=== PATIENT | female | born 1940 | race Caucasian/White ===

== ENCOUNTER 2017-04-18 16:50 | Emergency (ER) | payer MEDICARE, BC ==
[2017-04-18] MEDS ORDERED: Ondansetron HCl/PF 4 MG/2 ML Vial ONE (17:31)
[2017-04-18] MEDS ORDERED: Ondansetron ODT 4 MG TAB ONE (17:31)
== END 2017-04-18 17:35 | disposition home or self-care (01) ==
LOC: MADERS 16:50
DX: K52.9 Noninfective gastroenteritis and colitis, unspecified (principal); E78.5 Hyperlipidemia, unspecified; I10 Essential (primary) hypertension
CPT/HCPCS: 99283; J2405; Q0162

== ENCOUNTER 2017-04-19 03:22 | Emergency (ER) | payer MEDICARE, BC ==
[2017-04-19 03:56] LABS: #Lymphocytes 1.1 thou/uL (1.20-3.40); #Monocytes 0.8 thou/uL (0.11-0.59); #Neutrophils 12.2 thou/uL (1.40-6.50); %Basophils 0.3 % (0.0-1.0); %Eosinophils 0.1 % (0.0-10.0); %Monocytes 5.4 % (0.0-10.0); %Neutrophils 86.1 % (42.0-75.0); Hemoglobin 16.9 g/dL (12.0-16.0); Mean Corpuscular HGB CONC 33.6 g/dL (32.0-36.0); Mean Corpuscular Hemoglobin 30.1 pg (27.0-31.0); Mean Corpuscular Volume 89.7 fl (81.0-99.0); Mean Platelet Volume 9.7 fL (7.4-10.4); Platelet Count 238 thou/uL (130-400); RBC Distribution Width 12.5 % (11.5-14.5); Red Blood Cell (RBC) Count 5.62 mill/uL (4.20-5.40); White Blood Cell (WBC) Count 14.2 thou/uL (4.8-10.8)
[2017-04-19] MEDS ORDERED: Ketorolac Tromethamine 30 MG/ML VIAL ONE (04:03)
[2017-04-19] MEDS ORDERED: Metoclopramide HCl 10 MG/2 ML VIAL ONE ×2 (04:04→09:23)
[2017-04-19] MEDS ORDERED: Ondansetron HCl/PF 4 MG/2 ML Vial ONE (04:04)
[2017-04-19 04:13] LABS: ALT (SGPT) 10 U/L (8-55); AST (SGOT) 17 U/L (5-34); Albumin 3.6 g/dL (3.4-4.8); Alkaline Phosphatase 87 U/L (40-150); Anion Gap 21 mmol/L (10-20); BUN (Urea Nitrogen) 15 mg/dL (9.8-20.1); Bilirubin, Total 1.3 mg/dL (0.2-1.2); CK (CPK) 32 U/L (29-168); Calc. Creatinine Clearance 0 mL/min (70-130); Calcium 8.8 mg/dL (7.8-10.44); Carbon Dioxide 18 mmol/L (23-31); Chloride 103 mmol/L (98-107); Estimated GFR-MDRD 48; Globulin 2.4 g/dL (2.4-3.5); Glucose 146 mg/dL (83-110); Lipase 27 U/L (8-78); Potassium 3.8 mmol/L (3.5-5.1); Sodium 138 mmol/L (136-145)
[2017-04-19 04:15] LABS: Troponin I 0.014 ng/mL (< 0.028)
[2017-04-19 04:22] LABS: PTT 23.6 SEC (22.9-36.1); Prothrombin Time 13.8 SEC (12.0-14.7)
[2017-04-19 04:30] LABS: CKMB 2.5 ng/mL (0-6.6)
[2017-04-19 04:47] LABS: Clarity Hazy (Clear); Glucose, Urine (Dipstick) Negative (Negative); Icto Negative (Negative); Leukocyte Small (Negative); Nitrite Negative (Negative); Protein, Urine (Dipstick) Negative (Neg-Trace); Urobilinogen 0.2 mg/dL (0.2-1.0); pH, Urine 5.5 (5.0-9.0)
[2017-04-19 04:48] LABS: Bilirubin Negative (Negative); Blood, Urine Small (Negative)
[2017-04-19 04:54] LABS: Bacteria/HPF 2+ HPF (None Seen); Hyaline Casts/LPF 7-10 HYALINE CAST LPF (0-3 Hyaline); RBC/HPF 0-3 HPF (0-3)
[2017-04-19] MEDS ORDERED: Ciprofloxacin 500 MG TAB ONE (05:06)
[2017-04-19] MEDS ORDERED: Sodium Chloride 0.9% 1,000 ML BAG ONE (07:40)
--- NOTE | 2017-04-19 08:05 | RAD ---
PORTABLE CHEST 1 VIEW: Date: 04/19/17 Time: 0344 hours HISTORY: Syncope. FINDINGS: Heart size is normal. No confluent areas of consolidation, pneumothorax, or pleural effusions are se en. IMPRESSION: No acute process. POS: OFF
--- NOTE | 2017-04-19 08:10 | CT ---
PRELIMINARY REPORT/[facility]/EMERGENCY AFTER HOURS PROCEDURE: EXAM: CT Head Without Intravenous Contrast CLINICAL HISTORY: 77 years old, female; Injury or trauma; Fall; Initial encounter; Abrasion; Face TECHNIQUE: Axial computed tomography images of the head/brain without intravenous contrast. This CT exam was pe rformed using one or more of the following dose reduction techniques: automated exposure control, ad justment of the mA and/or kV according to patient size, and/or use of iterative reconstruction techn ique. EXAM DATE/TIME: Exam ordered 04/19/2017 4:12 AM COMPARISON: No relevant prior studies available. FINDINGS: Brain: There is moderate parenchymal volume loss. No hemorrhage. No significant white matter disease . No edema. Ventricles: Normal. No ventriculomegaly. Bones/joints: Normal. No acute fracture. Soft tissues: There is trace RIGHT frontal soft tissue swelling. Sinuses: Unremarkable as visualized. No acute sinusitis. Mastoid air cells: Unremarkable as visualized. No mastoid effusion. IMPRESSION: No acute intracranial hemorrhage. Thank you for allowing us to participate in the care of your patient. Dictated and Authenticated by: David De La Rosa MD 04/19/2017 5:01 AM Central Time ([place] \T\ [place]) FINAL REPORT CT BRAIN WITHOUT CONTRAST: I agree with the preliminary report given by Dr. David De La Rosa of [facility]. No CT evidence of acute intr acranial process is seen. POS: OFF
--- NOTE | 2017-04-19 08:11 | CT ---
PRELIMINARY REPORT/[facility]/EMERGENCY AFTER HOURS PROCEDURE: EXAM: CT Cervical Spine Without Intravenous Contrast CLINICAL HISTORY: 77 years old, female; Injury or trauma; Fall; Initial encounter; Sprain or strain, cervical ligament s TECHNIQUE: Axial computed tomography images of the cervical spine without intravenous contrast. This CT exam wa s performed using one or more of the following dose reduction techniques: automated exposure control , adjustment of the mA and/or kV according to patient size, and/or use of iterative reconstruction t echnique. EXAM DATE/TIME: Exam ordered 04/19/2017 4:16 AM COMPARISON: No relevant prior studies available. FINDINGS: Vertebrae: No CT evidence for acute cervical fracture. 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 Multilevel degenerative changes are p resent with the space narrowing and spondylosis with degenerative straightening of the cervical spine and mild multilevel neural foraminal narrowing spinal canal stenosis. Discs/spinal canal/neural foramina: See above. Soft tissues: Normal. Thyroid: The thyroid gland is normal. Lung apices: Unremarkable as visualized. IMPRESSION: No CT evidence for acute cervical fracture. Degenerative changes as above. Thank you for allowing us to participate in the care of your patient. Dictated and Authenticated by: David De La Rosa MD 04/19/2017 5:04 AM Central Time ([place] \T\ [place]) FINAL REPORT CT CERVICAL SPINE WITH CORONAL AND SAGITTAL REFORMATIONS: I agree with the preliminary report given by Dr. David De La Rosa of [facility]. POS: OFF
== END 2017-04-19 05:31 | disposition home or self-care (01) ==
LOC: MADERS 03:22
DX: S00.03XA Contusion of scalp, initial encounter (principal); E86.0 Dehydration; N39.0 Urinary tract infection, site not specified; R55 Syncope and collapse; E78.5 Hyperlipidemia, unspecified; I10 Essential (primary) hypertension; X58.XXXA Exposure to other specified factors, initial encounter
CPT/HCPCS: 70450; 71010; 72125; 80053; 81001; 82150; 82553; 83690; 83880; 84484; 85025; 85610; 85730; 87077; 87086; 87186; 93005; 94760; 96361; 96374; 96375; J1885; J2405; J2765; J7050

== ENCOUNTER 2017-05-03 11:32 | Outpatient (CLI) | payer BC ==
[2017-05-03 12:22] LABS: #Basophils 0.1 thou/uL (0.0-0.2); #Eosinphils 0.1 thou/uL (0.0-0.7); #Lymphocytes 1.5 thou/uL (1.20-3.40); #Monocytes 0.7 thou/uL (0.11-0.59); #Neutrophils 5.9 thou/uL (1.40-6.50); %Eosinophils 1.6 % (0.0-10.0); %Lymphocytes 18.3 % (21.0-51.0); %Monocytes 8.4 % (0.0-10.0); %Neutrophils 70.7 % (42.0-75.0); Hemoglobin 13.6 g/dL (12.0-16.0); Mean Corpuscular Hemoglobin 28.7 pg (27.0-31.0); Mean Corpuscular Volume 89.8 fl (81.0-99.0); Mean Platelet Volume 8.1 fL (7.4-10.4); Platelet Count 210 thou/uL (130-400); RBC Distribution Width 11.9 % (11.5-14.5); Red Blood Cell (RBC) Count 4.76 mill/uL (4.20-5.40); White Blood Cell (WBC) Count 8.4 thou/uL (4.8-10.8)
[2017-05-03 12:25] LABS: ALT (SGPT) 16 U/L (8-55); AST (SGOT) 21 U/L (5-34); Alkaline Phosphatase 74 U/L (40-150); Anion Gap 15 mmol/L (10-20); BUN (Urea Nitrogen) 13 mg/dL (9.8-20.1); Bilirubin, Total 1.2 mg/dL (0.2-1.2); Calc. Creatinine Clearance 0 mL/min (70-130); Calcium 9.7 mg/dL (7.8-10.44); Carbon Dioxide 26 mmol/L (23-31); Chloride 105 mmol/L (98-107); Estimated GFR-MDRD 48; Globulin 2.7 g/dL (2.4-3.5); Glucose 93 mg/dL (83-110); Potassium 4.5 mmol/L (3.5-5.1); Protein, Total 6.7 g/dL (6.0-8.3); Sodium 141 mmol/L (136-145)
== END 2017-05-03 11:33 | disposition home or self-care (01) ==
LOC: MADLAB 11:32
DX: E86.0 Dehydration (principal)
CPT/HCPCS: 36415; 80053; 85025

== ENCOUNTER 2019-05-27 10:26 | Emergency (ER) | payer MEDICARE, BC ==
--- NOTE | 2019-05-27 10:55 | RAD ---
EXAM: Chest 2 views: HISTORY: Chest pain COMPARISON: 04/19/2017 FINDINGS: There is a normal-sized cardiomediastinal silhouette. There is no evidence of consolidation, mass, or pleural effusion. A spinal stimulation device is seen. The patient has a calcified right breast implant. IMPRESSION: No evidence of acute cardiopulmonary disease
== END 2019-05-27 11:05 | disposition home or self-care (01) ==
LOC: MADERS 10:26
DX: R05 Cough (principal); E78.5 Hyperlipidemia, unspecified; E78.00 Pure hypercholesterolemia, unspecified; I10 Essential (primary) hypertension; Z79.899 Other long term (current) drug therapy
CPT/HCPCS: 71046

== ENCOUNTER 2021-11-02 14:39 | Outpatient (CLI) | payer BC | END 2021-11-02 14:40 | disposition home or self-care (01) | LOC: MADEKG 14:39 | PROVIDERS: ATTEND Pain Medicine Pain Medicine | DX: Z01.810 Encounter for preprocedural cardiovascular examination (principal) | CPT/HCPCS: 93005; 93010 ==